=== PATIENT | female | born 1950 | race Caucasian/White ===

== ENCOUNTER 2017-07-22 11:09 | Inpatient (IN) | payer MEDICARE, OTHER ==
[~2017-07-22] VITALS: Ht 162.6 cm; Wt 73.6 kg
[2017-07-22] MEDS ORDERED: LEVOXYL0.1 MG PO (11:24)
[2017-07-22 11:48] LABS: BASO % 0.9 % (0.0-2.0); EOS # 0.6 (0.0-0.7); EOS % 12.9 % (0-4.0); GRAN # 1.8 (1.4-6.5); GRAN % 39.6 % (42.2-75.2); HEMATOCRIT 40.7 % (37.0-47.0); HEMOGLOBIN 13.6 g/dl (12.5-16.0); LYMPH # 1.9 (1.2-3.4); LYMPH % 39.9 % (20.0-51.0); MEAN CELL VOLUME 88 fl (80.0-100.0); MEAN CORPUSCULAR HEMOGLOBIN 29 pg (27.0-31.0); MEAN CORPUSCULAR HGB CONC 33 g/dl (33.0-37.0); MEAN PLATELET VOLUME 10.3 fl (7.4-10.4); MONO # 0.3 (0.1-0.6); MONO % 6.5 % (1.7-9.3); PLATELET COUNT 184 K/mm3 (130-400); RED BLOOD COUNT 4.62 M/mm3 (4.10-5.30); REDCELL DISTRIBUTION WIDTH-CV 12.9 % (11.5-14.5); WHITE BLOOD COUNT 4.6 K/mm3 (4.8-10.8)
[2017-07-22 11:52] LABS: PROTHROMBIN TIME 11.5 SECONDS (9.7-12.8)
[2017-07-22 12:02] LABS: ADJUSTED CALCIUM 8.9 mg/dL (8.4-10.2); ALANINE AMINOTRANSFERASE 26 U/L (9-52); ALBUMIN 4.2 gm/dL (3.5-5.0); ALKALINE PHOSPHATASE 88 U/L (50-136); ANION GAP 12 mmol/L (7-16); BILIRUBIN,TOTAL 0.8 mg/dL (0.0-1.0); BLOOD UREA NITROGEN 12 mg/dL (7-17); C-REACTIVE PROTEIN < 0.5 mg/dL (0.0-0.9); CALCIUM 9.1 mg/dL (8.4-10.2); CARBON DIOXIDE 23 mmol/L (22-30); CHLORIDE 104 mmol/L (98-107); CREATININE, serum 0.72 mg/dL (0.52-1.25); GLUCOSE 97 mg/dL (74-106); POTASSIUM 3.9 mmol/L (3.4-5.0); SODIUM 140 mmol/L (137-145); TOTAL PROTEIN 7.6 gm/dL (6.4-8.2)
[2017-07-22 13:30] VITALS: BP 173/80; PULSE 50; TEMP 97.9
[2017-07-22 15:12] VITALS: BP 157/78; PULSE 56; TEMP 97.8
[2017-07-22 15:15] VITALS: BP 157/78; PULSE 57; TEMP 97.9
[2017-07-22 17:05] LABS: MAGNESIUM 1.8 mg/dL (1.6-2.3)
[2017-07-22 20:34] VITALS: BP 148/79; PULSE 62; TEMP 97.8
[2017-07-23 01:25] VITALS: BP 144/77; PULSE 60; TEMP 98.1
[2017-07-23 03:28] VITALS: BP 119/68; PULSE 63; TEMP 97.1
[2017-07-23 07:19] LABS: BASO # 0.1 (0.0-0.2); BASO % 1.1 % (0.0-2.0); EOS # 0.7 (0.0-0.7); EOS % 13.3 % (0-4.0); GRAN # 1.8 (1.4-6.5); GRAN % 33.8 % (42.2-75.2); HEMATOCRIT 44.7 % (37.0-47.0); LYMPH # 2.4 (1.2-3.4); MEAN CELL VOLUME 87 fl (80.0-100.0); MEAN CORPUSCULAR HEMOGLOBIN 29 pg (27.0-31.0); MEAN CORPUSCULAR HGB CONC 34 g/dl (33.0-37.0); MEAN PLATELET VOLUME 10.4 fl (7.4-10.4); MONO # 0.4 (0.1-0.6); MONO % 6.8 % (1.7-9.3); PLATELET COUNT 196 K/mm3 (130-400); RED BLOOD COUNT 5.13 M/mm3 (4.10-5.30); REDCELL DISTRIBUTION WIDTH-CV 12.8 % (11.5-14.5); WHITE BLOOD COUNT 5.3 K/mm3 (4.8-10.8)
[2017-07-23 07:37] LABS: CALCIUM 9.3 mg/dL (8.4-10.2); CREATININE, serum 0.74 mg/dL (0.52-1.25); POTASSIUM 3.9 mmol/L (3.4-5.0)
[2017-07-23 07:40] VITALS: BP 149/74; PULSE 64; TEMP 97.7
[2017-07-23 11:41] VITALS: BP 157/87; PULSE 54; TEMP 98
[2017-07-23 15:13] VITALS: BP 129/74; PULSE 97; TEMP 97.7
[2017-07-23] MEDS ORDERED: PRAVACHOL 40MG40 MG PO (18:03)
[2017-07-23] MEDS ORDERED: COZAAR 50MG50 MG/TAB PO (18:03)
[2017-07-23] MEDS ORDERED: TENORMIN 5050 MG/TAB PO (18:03)
[2017-07-23] MEDS ORDERED: HCTZ12.5TAB PO (18:04)
[2017-07-23] MEDS ORDERED: ASPI325T6 PO (18:04)
== END 2017-07-23 18:35 | disposition home or self-care (01) | DRG 69 ==
LOC: COL.ER 11:09 → PEDS 12:10
PROVIDERS: Family Medicine; Nurse Practitioner Family
DX: G45.9 Transient cerebral ischemic attack, unspecified (principal); I16.0 Hypertensive urgency; I10 Essential (primary) hypertension; I73.9 Peripheral vascular disease, unspecified; M47.9 Spondylosis, unspecified; G89.29 Other chronic pain
CPT/HCPCS: 99223-AI; A9585; J1650; J7030